=== PATIENT | female | born 1950 | race Two or more races ===

== ENCOUNTER 2019-05-03 07:29 | Outpatient (CLI) | payer OTHER | END 2019-05-03 07:31 | disposition home or self-care (01) | LOC: SONOGRAMA 07:29 | DX: E04.1 Nontoxic single thyroid nodule (principal) ==

== ENCOUNTER 2024-11-01 15:44 | Outpatient (CLI) | payer OTHER | END 2024-11-01 15:51 | disposition home or self-care (01) | LOC: RAD 15:44 | PROVIDERS: ATTEND Physical Medicine & Rehabilitation Hospice and Palliative Medicine | DX: M41.9 Scoliosis, unspecified (principal) ==